=== PATIENT | male | born 1985 | race African-American/Black ===

== ENCOUNTER 2017-08-22 23:24 | Emergency (ER) | payer OTHER ==
[~2017-08-22] VITALS: Ht 180.3 cm; Wt 91.6 kg
[~2017-08-22 23:24] MED LIST: ALBUTEROL SULF8.5 GM INH; AMOXICILLIN500 MG ORAL; AZITHROMYCIN250 MG ORAL; CEPHALEXIN500 M1 ORAL; CLARITIN10 MG ORAL; CYCLOBENZAPRINE10 MG ORAL; DIFLUCAN200 MG ORAL; FLONASE1 SPRAYS NASAL; FLUCONAZOLE100 MG ORAL; IBUPROFEN600 MG ORAL; KEFLEX500 MG ORAL; NORCO 5-325 TA1 EACH ORAL; PHENERGAN6.25 MG/5 ORAL; PRILOSEC20 MG ORAL; PROMETHAZINE-C118 M1 ORAL; PROMETHAZINE-D118 ML ORAL; RANITIDINE HCL150 MG ORAL; TYLENOL EXTRA500 MG ORAL; ZOFRAN4 MG ORAL
[2017-08-22] MEDS ORDERED: AMLODIPINE BESYL5 MG ORAL (23:46)
[2017-08-22] MEDS ORDERED: PREDNISONE20 MG ORAL (23:46)
[2017-08-22] MEDS ORDERED: CELEXA20 MG ORAL (23:46)
[2017-08-22] MEDS ORDERED: LEVOTHYROXINE75 MCG ORAL (23:46)
[2017-08-22] MEDS ORDERED: DESMOPRESSIN A0.2 MG PO (23:46)
[2017-08-23] MEDS ORDERED: Morphine Sulfate 4mg/ml Inj IVP ONE (00:15)
[2017-08-23] MEDS ORDERED: DiphenhydrAMINE 50mg/ml Inj IVP ONE ×2 (00:15→04:00)
[2017-08-23] MEDS ORDERED: Metoclopramide 10mg/2ml Inj IVP ONE ×2 (00:15→04:00)
[2017-08-23 00:32] LABS: PROTHROMBIN TIME 10.5 SEC (9.30-11.50)
[2017-08-23 00:34] LABS: ANION GAP 9 mmol/L (5-15); CALCIUM 8.8 MG/DL (8.5-10.1); CARBON DIOXIDE 30 MMOL/L (21-32); CHLORIDE 101 MMOL/L (98-107); CREATININE 1.5 MG/DL (0.55-1.30); GLOMERULAR FILTRATION RATE > 60 mL/min (>60); POTASSIUM 4.4 MMOL/L (3.5-5.1); SODIUM 140 MMOL/L (136-145)
[2017-08-23 00:39] LABS: ALANINE AMINOTRANSFERASE 37 U/L (12-78); ASPARTATE AMINO TRANSFERASE 30 U/L (15-37); LIPASE 123 U/L (73-393); TOTAL PROTEIN 9.4 G/DL (6.4-8.2)
[2017-08-23 00:41] LABS: ALCOHOL < 3 mg/dL
[2017-08-23 00:56] LABS: REFLEX LACTIC ACID YES OR NO YES
[2017-08-23 01:10] LABS: MEAN CORPUSCULAR HEMOGLOBIN 22.6 PG (27.0-31.0); MEAN CORPUSCULAR HGB CONC 31.6 G/DL (32.0-36.0); MEAN CORPUSCULAR VOLUME 72 FL (80-99); MEAN PLATELET VOLUME 11.5 FL (6.5-10.1); PLATELET COUNT 199 K/UL (150-450); RED BLOOD COUNT 6.87 M/UL (4.70-6.10); RED CELL DISTRIBUTION WIDTH 13.4 % (11.6-14.8); WHITE BLOOD COUNT 7.3 K/UL (4.8-10.8)
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
[2017-08-23 02:52] LABS: APPEARANCE,URINE CLEAR; KETONES,URINE NEGATIVE (NEGATIVE); LEUKOCYTE ESTERASE ,URINE 1+ (NEGATIVE); NITRITE,URINE NEGATIVE (NEGATIVE); PH,URINE 7 (4.5-8.0); PROTEIN,URINE NEGATIVE (NEGATIVE); UROBILINOGEN,URINE NORMAL MG/DL (0.0-1.0)
[2017-08-23 03:05] LABS: BACTERIA,URINE FEW /HPF; RBC,URINE 0-2 /HPF (0 - 0); SQUAMOUS EPITHELIAL CELL,UR FEW /LPF (NONE/OCC); WBC,URINE 0-2 /HPF (0 - 0)
[2017-08-23 03:53] VITALS: BP 128/91
[2017-08-23] MEDS ORDERED: PEPCID20 MG ORAL (05:13)
[2017-08-23] MEDS ORDERED: TRAMADOL HCL50 MG ORAL (05:13)
[2017-08-23] MEDS ORDERED: ZOFRAN ODT4 MG ORAL (05:13)
[2017-08-23 05:16] LABS: BAND NEUTROPHILS % (MANUAL) 0 % (0-8); BASOPHILS % (MANUAL) 0 % (0-2); EOSINOPHILS % (MANUAL) 0 % (0-3); LYMPHOCYTES % (MANUAL) 8 % (20-45); NEUTROPHILS % (MANUAL) 89 % (45-75); PLATELET ESTIMATE ADEQUATE; PLATELET MORPHOLOGY NORMAL; TOTAL CELLS COUNTED 100
[2017-08-23 05:20] VITALS: BP 128/91
== END 2017-08-23 05:20 | disposition home or self-care (01) ==
LOC: EMR 23:50
DX: K52.9 Noninfective gastroenteritis and colitis, unspecified (principal); N28.9 Disorder of kidney and ureter, unspecified; Z98.890 Other specified postprocedural states; J44.9 Chronic obstructive pulmonary disease, unspecified
CPT/HCPCS: 36415; 80053; 80307; 80329; 81003; 82550; 83605; 83690; 85007; 85025; 85610; 85730; 96361; 96374; 96375; 96376; 99284; J1200; J2270; J2765; S0028

== ENCOUNTER 2017-12-24 13:57 | Emergency (ER) | payer OTHER ==
[~2017-12-24] VITALS: Ht 180.3 cm; Wt 93.4 kg
[~2017-12-24 13:57] MED LIST changes: +AMLODIPINE BESYL5 MG ORAL; +CELEXA20 MG ORAL; +DESMOPRESSIN A0.2 MG PO; +LEVOTHYROXINE75 MCG ORAL; +PEPCID20 MG ORAL; +PREDNISONE20 MG ORAL; +TRAMADOL HCL50 MG ORAL; +ZOFRAN ODT4 MG ORAL
[2017-12-24 14:33] VITALS: BP 126/95
[2017-12-24] MEDS ORDERED: Ketorolac 30mg Inj IM ONE (14:45)
[2017-12-24] MEDS ORDERED: IBUPROFEN600 MG ORAL (14:53)
[2017-12-24] MEDS ORDERED: ROBAXIN-750750 MG PO (14:53)
[2017-12-24 15:01] VITALS: BP 126/95
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
--- NOTE | 2017-12-25 17:06 | Cardiology Report ---
APPROVED REPORT EKG Measurement Heart [id number] Normal sinus rhythm Nonspecific T wave abnormality Abnormal ECG
== END 2017-12-24 15:03 | disposition home or self-care (01) ==
LOC: EMR 14:41
DX: R07.89 Other chest pain (principal); I10 Essential (primary) hypertension; J45.909 Unspecified asthma, uncomplicated
CPT/HCPCS: 93005; 96372; 99284; J1885